=== PATIENT | female | born 1980 | race Caucasian/White ===

== ENCOUNTER 2018-02-15 19:35 | Emergency (ER) | payer SELFPAY ==
[~2018-02-15] VITALS: Ht 157.5 cm; Wt 101.6 kg
--- NOTE | 2018-02-15 19:53 | PHYS DOC ---
Adult General Chief Complaint Chief Complaint: BACK PAIN OR INJURY [facility] HPI Patient is a 37 year old female who presents with lower back pain after falling down 5 steps. Patient has a history of herniated disks in the past with surgery and was moving a couch downstairs with a limited help of her mother. Patient states that they want able to maintain control and she slipped and fell onto her back down the last several steps. Patient states she fell onto her right hip was able to ambulate somewhat afterwards but is here for further evaluation and management. Denies any head or neck trauma and has no other acute complaints other than lower back pain and right hip pain. Review of Systems Review of Systems Constitutional: Denies fever or chills [] Eyes: Denies change in visual acuity, redness, or eye pain [] HENT: Denies nasal congestion or sore throat [] Respiratory: Denies cough or shortness of breath [] Cardiovascular: No additional information not addressed in HPI [] GI: Denies abdominal pain, nausea, vomiting, bloody stools or diarrhea [] : Denies dysuria or hematuria [] Musculoskeletal: Denies back pain or joint pain [] Integument: Denies rash or skin lesions [] Neurologic: Denies headache, focal weakness or sensory changes [] Endocrine: Denies polyuria or polydipsia [] All other systems were reviewed and found to be within normal limits, except as documented in this note. Allergies Allergies Allergies Coded Allergies Type Severity Reaction Last Updated Verified cyclobenzaprine Allergy Intermediate 02/15/18 Yes naproxen Allergy Intermediate 02/15/18 Yes Physical Exam Physical Exam Constitutional: Well developed, well nourished, no acute distress, non-toxic appearance. [] HENT: Normocephalic, atraumatic, bilateral external ears normal, oropharynx moist, no oral exudates, nose normal. [] Eyes: PERRLA, EOMI, conjunctiva normal, no discharge. [] Neck: Normal range of motion, no tenderness, supple, no stridor. [] Cardiovascular:Heart rate regular rhythm, no murmur [] Lungs & Thorax: Bilateral breath sounds clear to auscultation [] Abdomen: Bowel sounds normal, soft, no tenderness, no masses, no pulsatile masses. [] Skin: Warm, dry, no erythema, no rash. [] Back: No tenderness, no CVA tenderness. [] Extremities: No tenderness, no cyanosis, no clubbing, ROM intact, no edema. [] Neurologic: Alert and oriented X 3, normal motor function, normal sensory function, no focal deficits noted. [] Psychologic: Affect normal, judgement normal, mood normal. [] EKG EKG [] Radiology/Procedures Radiology/Procedures X-ray of L-spine, pelvis and right femur are negative for fracture[] Course & Med Decision Making Course & Med Decision Making Pertinent Labs and Imaging studies reviewed. (See chart for details) [] Dragon Disclaimer Dragon Disclaimer This electronic medical record was generated, in whole or in part, using a voice recognition dictation system. Departure Departure: Impression: Primary Impression: Fall Additional Impression: Back pain Disposition: 01 HOME, SELF-CARE Condition: STABLE Patient Instructions: Back Pain, Adult, Fall Prevention and Home Safety, Easy- to-Read Scripts Tramadol Hcl (ULTRAM) 50 Mg Tablet 50 MG PO PRN Q8HRS PRN for PAIN, #20 TAB Prov: MARYAN DURHAM MD 02/15/18 Problem Qualifiers MARYAN DURHAM MD Feb 15, 2018 19:53
[2018-02-15] MEDS ORDERED: IV NORMAL SALINE 1,000ML 1,000 ML IV ONE (21:00)
[2018-02-15 21:13] LABS: BARBITURATES NEG (NEG); BENZODIAZEPINES NEG (NEG); CANNABINOIDS NEG (NEG); COCAINE NEG (NEG); METHADONE NEG (NEG); OPIATES NEG (NEG); PHENCYCLIDINE NEG (NEG)
[2018-02-15 21:14] LABS: AMPHETAMINE/METHAMPHETAMINE NEG (NEG)
[2018-02-15 21:34] LABS: BILIRUBIN,URINE NEG (NEG); CLARITY,URINE CLEAR; COLOR,URINE YELLOW; GLUCOSE,URINE NEG (NEG); NITRITE,URINE NEG (NEG); UROBILINOGEN,URINE 1 mg/dL (0.2 mg/dL)
[2018-02-15 21:35] LABS: BACTERIA,URINE 0 /HPF (0-FEW); SQUAMOUS EPITHELIAL CELL,UR FEW /LPF; WBC,URINE OCC /HPF (0-4)
[2018-02-15 21:40] LABS: U PREG PATIENT NEGATIVE (NEG)
[2018-02-15] MEDS ORDERED: TRAM-48 PO (22:11)
[2018-02-15 22:30] VITALS: BP 122/93
[2018-02-15] MEDS ORDERED: traMADol 50 MG TABLET PO ONE (22:30)
--- NOTE | 2018-02-16 05:34 | RAD ---
EXAM: 1. Lumbar spine 3 views. 2. Pelvis 1 view. 3. Right femur 2 views. HISTORY: Fall down steps. Low back, pelvic and right femoral pain. COMPARISON: None. FINDINGS: There is a minimal lumbar levocurvature. Vertebral body heights are maintained, and no fractures are identified. Degenerative disc disease is mild at L4-5 and moderate at L5-S1. No fractures are identified within the pelvis or at either hip. The joint spaces of both hips are maintained. There is moderately decreased femoral head/neck offset anteriorly at the right hip. No fractures are identified within the right femur. IMPRESSION: 1. No fracture. 2. Degenerative disc disease is mild at L4-5 and moderate at L5-S1. 3. Correlate for femoroacetabular impingement anteriorly on the right. Electronically signed by: Kari Howard MD (02/16/2018 5:31 AM) [facility]
== END 2018-02-15 22:30 | disposition home or self-care (01) ==
LOC: ER 19:35
DX: M54.5 Low back pain (principal); W10.8XXA Fall (on) (from) other stairs and steps, initial encounter; Y93.89 Activity, other specified; Y99.8 Other external cause status; Y92.89 Other specified places as the place of occurrence of the external cause
CPT/HCPCS: 36415; 72100; 72170; 73552; 80307; 81001; 81025; 99285-25; G0479; J7030

== ENCOUNTER 2018-03-06 00:56 | Emergency (ER) | payer SELFPAY ==
[~2018-03-06] VITALS: Ht 157.5 cm; Wt 101.6 kg
[~2018-03-06 00:56] MED LIST: TRAM-48 PO
[2018-03-06 00:59] VITALS: BP 121/71
[2018-03-06] MEDS ORDERED: SMZ/TMP 800/160MG TABLET. PO ONE ×2 (01:30→02:05)
[2018-03-06] MEDS ORDERED: HYDROcodone/APAP 5/325MG 1 TAB TABLET PO ONE (01:30)
[2018-03-06] MEDS ORDERED: SULF1TAB24 PO (01:48)
[2018-03-06] MEDS ORDERED: TRAM-48 PO (01:48)
--- NOTE | 2018-03-06 01:48 | PHYS DOC ---
Past History Past Medical History: No Pertinent History Past Surgical History: Appendectomy, Other Smoking: Cigarettes Alcohol Use: None Drug Use: None Adult General Chief Complaint Chief Complaint: ABSCESS HPI HPI 37-year-old female patient complaining of abscess of left breast for the last 3 days that getting worse for the last 24 hours and had drainage of polyps for the last few hours. Patient denies fever and chills, history of MRSA, recent injury. Patient rated her pain 8/10 and denies taking [id number] pain medication because she didn't have pain medication at home. Review of Systems Review of Systems Constitutional: Denies fever or chills [] Eyes: Denies change in visual acuity, redness, or eye pain [] HENT: Denies nasal congestion or sore throat [] Respiratory: Denies cough or shortness of breath [] Cardiovascular: No additional information not addressed in HPI [] GI: Denies abdominal pain, nausea, vomiting, bloody stools or diarrhea [] : Denies dysuria or hematuria [] Musculoskeletal: Denies back pain or joint pain [] Integument: Denies rash, reports skin lesions [] Neurologic: Denies headache, focal weakness or sensory changes [] Endocrine: Denies polyuria or polydipsia [] All other systems were reviewed and found to be within normal limits, except as documented in this note. Current Medications Current Medications Current Medications Medications (Trade) Dose Ordered Sig/Eve Start Time Stop Time Status Last Admin Dose Admin Acetaminophen/ Hydrocodone Bitart (Lortab 5/325) 1 tab 1X ONCE 03/06/18 01:30 03/06/18 01:31 UNV Trimethoprim/ Sulfamethoxazole (Bactrim Ds) 1 tab 1X ONCE 03/06/18 01:30 03/06/18 01:31 UNV Allergies Allergies Allergies Coded Allergies Type Severity Reaction Last Updated Verified cyclobenzaprine Allergy Intermediate 02/15/18 Yes naproxen Allergy Intermediate 02/15/18 Yes Physical Exam Physical Exam Constitutional: Well nourished, no acute distress, non-toxic appearance. [] HENT: Normocephalic, atraumatic Eyes: PERRLA, EOMI, conjunctiva normal, no discharge. [] Neck: Normal range of motion, no tenderness, supple, no stridor. [] Cardiovascular:Heart rate regular rhythm, no murmur [] Lungs & Thorax: Bilateral breath sounds clear to auscultation [] Skin: Warm, dry, left breast with erythema and central puncture wound as a spontaneously drained abscess without fluctuation, no left axillary lymphadenopathy Back: No tenderness, no CVA tenderness. [] Extremities: No tenderness, no cyanosis, no clubbing, ROM intact, no edema. [] Neurologic: Alert and oriented X 3, normal motor function, normal sensory function, no focal deficits noted. [] Psychologic: Affect normal, judgement normal, mood normal. [] Current Patient Data Vital Signs Vital Signs Date Time Temp Pulse Resp B/P (MAP) Pulse Ox O2 Delivery O2 Flow Rate FiO2 03/06/18 00:59 98.0 89 16 96 Room Air EKG EKG [] Radiology/Procedures Radiology/Procedures [] Course & Med Decision Making Course & Med Decision Making Evaluation of patient in ER showed 37-year-old female patient with a spontaneously drained abscess of left breast without fever or lymphadenopathy. Patient was treated with 1 dose of Bactrim and [place] in ER and plan to discharge home with prescription of Ultram and Bactrim and instructed to follow- up with her primary care physician or return to ER if not getting better in 2 days. Dragon Disclaimer Dragon Disclaimer This electronic medical record was generated, in whole or in part, using a voice recognition dictation system. Departure Departure: Impression: Primary Impression: Left breast abscess Additional Impressions: Tobacco abuse Tobacco abuse counseling Disposition: HOME, SELF-CARE (at 0145) Condition: STABLE Referrals: PCP,NO (PCP) Patient Instructions: Abscess, Community-Associated MRSA Additional Instructions: Follow-up with your primary care physician in 3-5 days Return to ER if not getting better Scripts Tramadol Hcl (ULTRAM) 50 Mg Tablet 50 MG PO PRN Q6HRS PRN for PAIN, #14 TAB Prov: ALBER PHELPS MD 03/06/18 Sulfamethoxazole/Trimethoprim (BACTRIM DS TABLET) 1 Each Tablet 1 TAB PO BID, #14 TAB Prov: ALBER PHELPS MD 03/06/18 Problem Qualifiers ALBER PHELPS MD Mar 06, 2018 01:48
[2018-03-06] MEDS ORDERED: HYDROcodone/APAP 5/325MG 1 TAB TABLET ONE (02:06)
== END 2018-03-06 02:19 | disposition home or self-care (01) ==
LOC: ER 00:56
DX: N61.1 Abscess of the breast and nipple (principal); F17.210 Nicotine dependence, cigarettes, uncomplicated; Z71.6 Tobacco abuse counseling; Z88.8 Allergy status to other drugs, medicaments and biological substances
CPT/HCPCS: 99283